=== PATIENT | female | born 1990 | race African-American/Black ===

== ENCOUNTER 2019-04-16 08:31 | Emergency (ER) | payer OTHER ==
[2019-04-16 08:36] VITALS: BP 127/88; PULSE 81; TEMP 98.2; BMI 22.8
[2019-04-16] MEDS ORDERED: ALBUTEROL SO4 0.083% IH SOL 2.5 MG/3 ML VIAL.NEB. NEB ONE ×2 (08:57→10:31)
--- NOTE | 2019-04-16 09:11 | PDOC ---
History of Present Illness - General Chief Complaint: Cold Symptoms Stated Complaint: COUGH/CHEST PAIN Time Seen by Provider: 04/16/19 08:37 History Source: Patient - History of Present Illness Initial Comments: 04/16/19 09 28-year-old female complaining of chest congestion and cough for the last 3 nights. Patient report is worse with lying down. Denies fever, chills, nausea , vomiting, chest pain. Denies recent travel, OCP use, prolonged sitting. Past History - Past Medical History Allergies/Adverse Reactions: Allergies Allergy/AdvReac Type Severity Reaction Status Date / Time No Known Allergies Allergy Verified 04/16/19 08:35 Home Medications: Ambulatory Orders No Home Medications 0 dose .ROUTE UTDICT 01/20/13 levoFLOXacin [Levaquin -] 750 mg PO DAILY #14 tablet 05/16/14 Albuterol Sulfate Inhaler - [Ventolin HFA Inhaler -] 1 - 2 inh PO QID PRN #1 inhaler 04/16/19 COPD: No - Psycho Social/Smoking Cessation Hx Smoking Status: No Smoking History: Never smoked Number of Cigarettes Smoked Daily: 0 Information on smoking cessation initiated: No Hx Alcohol Use: No Drug/Substance Use Hx: No Substance Use Type: None Review of Systems - Review of Systems Able to Perform ROS?: Yes Is the patient limited Serbian proficient: No Constitutional: No: Symptoms Reported, See HPI, Chills, Diaphoresis, Fever, Loss of Appetite, Malaise, Night Sweats, Weakness, Weight Stable, Unintentional Wgt. Loss, Unexplained wgt Loss, Other Respiratory: Yes: Cough *Physical Exam - Vital Signs Last Vital Signs Temp Pulse Resp BP Pulse Ox 98.2 F 81 19 127/88 95 04/16/19 08:33 04/16/19 08:33 04/16/19 08:33 04/16/19 08:33 04/16/19 08:33 - Physical Exam General Appearance: Yes: Appropriately Dressed HEENT: positive: Nasal Congestion Respiratory/Chest: positive: Lungs Clear, Normal Breath Sounds. negative: Respiratory Distress, Accessory Muscle Use Cardiovascular: positive: Regular Rhythm, Regular Rate Gastrointestinal/Abdominal: positive: Normal Bowel Sounds, Soft Extremity: positive: Normal Capillary Refill Integumentary: positive: Normal Color, Dry, Warm Neurologic: positive: Fully Oriented, Alert ED Treatment Course - RADIOLOGY Radiology Studies Ordered: Category Date Time Status CHEST PA & LAT [RAD] Stat Radiology 04/16/19 08:57 Ordered ED Progress Note - Progress Note Progress Note: 04/16/19 10:11 A: RAD/ viral syndrome P: chest xray: negative EKG: NSR albuterol Medical Decision Making - Medical Decision Making 04/16/19 11:00 patient is feeling better. will d/c home. Discharge - Discharge Information Problems reviewed: Yes Clinical Impression/Diagnosis: Acute viral syndrome Reactive airway disease Qualifiers: Asthma severity: mild Asthma persistence: intermittent Asthma complication type : uncomplicated Qualified Code(s): J45.20 - Mild intermittent asthma, uncomplicated Disposition: HOME - Additional Discharge Information Prescriptions: Albuterol Sulfate Inhaler - [Ventolin HFA Inhaler -] 1 - 2 inh PO QID PRN #1 inhaler PRN Reason: Cough - Follow up/Referral Referrals: Micheal Campbell [Primary Care Provider] - - Patient Discharge Instructions Patient Printed Discharge Instructions: DI for Common Cold Additional Instructions: use albuterol every 6 hours as needed for cough, congestion follow up with your doctor as soon as possible. - Post Discharge Activity Work/Back to School Note: Back to Work
--- NOTE | 2019-04-17 11:11 | EKG ---
Test Reason : Blood Pressure : / mmHG Vent. Rate : 079 BPM Atrial Rate : 079 BPM P-R Int : 112 ms QRS Dur : 098 ms QT Int : 398 ms P-R-T Axes : 037 061 037 degrees QTc Int : 456 ms NORMAL SINUS RHYTHM INCOMPLETE RBBB NO PREVIOUS ECGS AVAILABLE Confirmed by THU BELL MD ([id number]) on 04/17/2019 11:11:15 AM Referred By: Confirmed By:THU BELL MD
== END 2019-04-16 11:22 | disposition home or self-care (01) ==
LOC: JERFT 08:31
PROC: 3E0F7GC Introduction of Other Therapeutic Substance into Respiratory Tract, Via Natural or Artificial Opening (ICD-10-PCS; principal; 2019-04-16)
DX: J45.20 Mild intermittent asthma, uncomplicated (principal); B34.9 Viral infection, unspecified
CPT/HCPCS: 71046-TC-FY; 84703; 93005; 93010; 99282-25

== ENCOUNTER 2022-05-23 10:36 | Emergency (ER) | payer OTHER ==
[2022-05-23 10:55] VITALS: BP 147/85; PULSE 98; RESP 16; TEMP 99.2; BMI 24.3
[2022-05-23] MEDS ORDERED: SODIUM CHLORIDE 0.9% 1000 ML INFUS.BAG IV ONE (11:49)
[2022-05-23 12:09] LABS: BASO % 0.2 % (0-2.0); EOS % 0.6 % (0-4.5); HEMATOCRIT 39.8 % (32.4-45.2); HEMOGLOBIN 13.4 GM/dL (10.7-15.3); MCH 29.5 pg (25.7-33.7); MCHC 33.7 g/dl (32.0-36.0); MEAN CELL VOLUME 87.5 fl (80-96); MEAN PLT VOLUME 8.2 fl (7.5-11.1); MONO % 11.7 % (3.8-10.2); NEUT % 75.5 % (42.8-82.8); PLATELET COUNT 249 10^3/uL (134-434); RBC 4.55 M/mm3 (3.60-5.2); RDW 13.4 % (11.6-15.6); WHITE BLOOD COUNT 9.2 K/mm3 (4.0-10.0)
[2022-05-23 12:16] LABS: INR 1.13 (0.83-1.09)
[2022-05-23 12:18] LABS: ACTIVATED PTT 28.5 SECONDS (25.2-36.5)
[2022-05-23 12:33] LABS: ALBUMIN 3.3 g/dl (3.4-5.0); BLOOD UREA NITROGEN 8.4 mg/dL (7-18); CALCIUM 8.7 mg/dL (8.5-10.1)
[2022-05-23 12:36] LABS: CREATININE 0.9 mg/dL (0.55-1.3)
[2022-05-23 12:38] LABS: BILIRUBIN,TOTAL 0.5 mg/dL (0.2-1); TOT PROT 6.8 g/dl (6.4-8.2)
== END 2022-05-23 16:26 | disposition home or self-care (01) ==
LOC: JER 10:36
DX: O20.0 Threatened abortion (principal); Z3A.08 8 weeks gestation of pregnancy
CPT/HCPCS: 36415; 76817-TC; 80053; 84702; 85025; 85610; 85730; 86850; 86900; 86901; 99284-25